=== PATIENT | female | born 1975 | race Caucasian/White ===

== ENCOUNTER → 2016-11-28 | Outpatient (CLI) | payer OTHER ==
[~2016-11-28] MED LIST: FENTANYL PF 100 MCG/2ML ONE; FLUMAZENIL 0.1 MG/1 ML, 5ML ONE; MIDAZOLAM 1 MG/ML, 5ML ONE; NALOXONE 1 MG/ML, 2ML ONE
== END | disposition home or self-care (01) ==
LOC: RAD 11:57
PROVIDERS: ATTEND Psychiatry & Neurology Neurology
DX: R51 Headache (principal)
CPT/HCPCS: 70551; 99156; 99157; J2250; J3010; J2310

== ENCOUNTER → 2018-04-09 | Outpatient (CLI) | payer OTHER | END | disposition home or self-care (01) | LOC: RAD 12:28 | PROVIDERS: ATTEND Specialist | DX: M47.897 Other spondylosis, lumbosacral region (principal); M51.27 Other intervertebral disc displacement, lumbosacral region | CPT/HCPCS: 72148; 99156; 99157; J2250; J3010; J2310 ==

== ENCOUNTER 2019-12-04 12:09 | Outpatient (CLI) | payer OTHER ==
[2019-12-04] MEDS ORDERED: NALOXONE 1 MG/ML, 2ML ONE (12:38)
[2019-12-04] MEDS ORDERED: FLUMAZENIL 0.1 MG/1 ML, 5ML ONE (12:38)
[2019-12-04] MEDS ORDERED: FENTANYL PF 100 MCG/2ML ONE (12:38)
[2019-12-04] MEDS ORDERED: MIDAZOLAM 1 MG/ML, 5ML ONE (12:38)
== END 2019-12-04 23:59 | disposition home or self-care (01) ==
LOC: RAD 12:09
PROVIDERS: ATTEND Physician Assistant Medical
DX: M25.511 Pain in right shoulder (principal); M12.811 Other specific arthropathies, not elsewhere classified, right shoulder; M47.26 Other spondylosis with radiculopathy, lumbar region; G43.909 Migraine, unspecified, not intractable, without status migrainosus; K21.9 Gastro-esophageal reflux disease without esophagitis; F17.210 Nicotine dependence, cigarettes, uncomplicated; Z79.891 Long term (current) use of opiate analgesic; Z79.899 Other long term (current) drug therapy
CPT/HCPCS: 73221; 99156; 99157; J2250; J3010; J2310

== ENCOUNTER 2020-11-24 10:01 | Outpatient (CLI) | payer OTHER ==
[2020-11-24] MEDS ORDERED: MIDAZOLAM 1 MG/ML, 5ML ONE (10:53)
[2020-11-24] MEDS ORDERED: FENTANYL PF 100 MCG/2ML ONE (10:53)
== END 2020-11-24 23:59 | disposition home or self-care (01) ==
LOC: RAD 10:01
PROVIDERS: ATTEND Physician Assistant Medical
DX: M47.26 Other spondylosis with radiculopathy, lumbar region (principal); K21.9 Gastro-esophageal reflux disease without esophagitis; G43.909 Migraine, unspecified, not intractable, without status migrainosus; M19.90 Unspecified osteoarthritis, unspecified site; F17.210 Nicotine dependence, cigarettes, uncomplicated; Z79.891 Long term (current) use of opiate analgesic; Z79.899 Other long term (current) drug therapy
CPT/HCPCS: 72148; 99156; 99157; J2250; J3010